=== PATIENT | female | born 1990 | race Caucasian/White ===

== ENCOUNTER 2016-09-02 17:09 | Emergency (ER) | payer OTHER | END 2016-09-02 18:25 | disposition home or self-care (01) | LOC: ER 17:09 | DX: F41.0 Panic disorder [episodic paroxysmal anxiety] (principal); F10.20 Alcohol dependence, uncomplicated; K29.20 Alcoholic gastritis without bleeding; F41.9 Anxiety disorder, unspecified; F17.210 Nicotine dependence, cigarettes, uncomplicated ==